=== PATIENT | female | born 1930 | race Caucasian/White ===

== ENCOUNTER → 2019-05-31 | Outpatient (CLI) | payer OTHER, BC ==
--- NOTE | 2019-05-31 14:11 | 2DMMODE ---
[facility] [employer] [address] 2 D/M-MODE ECHOCARDIOGRAM Name: SHAYLA PEDRAZA Room #: REG CL Hector#: [id number] ������������� Admission: 05/31/19 ������������� Attend Phys: Arcenio Colón Discharge: ��� ������������� ��� Date of : [birth year] Date of Service: 05/31/19 1411 �� Report #: [id number] �������� ��������������������������������������������[id number] THIS REPORT FOR: //name// APPROVED REPORT Study performed: 05/31/2019 13:11:50 EXAM: Comprehensive 2D, Doppler, and color-flow Echocardiogram Patient Location: Out-Patient Room #: Echo lab 2 Status: routine BSA: 1.61 HR: 72 bpm BP: 126/76 mmHg Rhythm: Pacemaker Other Information Study Quality: Adequate Indications Pacemaker Left Ventricle The left ventricle is normal size. Regional wall motion is not well visualized but grossly normal. There is normal left ventricular wall thickness. The left ventricular systolic function is normal. The left ventricular ejection fraction is within the normal range. LVEF is 55-60%. Mild diastolic dysfunction is present (impaired relaxation pattern). Right Ventricle The right ventricle is normal size. The right ventricular systolic function is normal. Pacemaker lead is present in the right ventricle. Atria The left atrium size is normal. The right atrium size is normal. Pacemaker lead is present in the right atrium. Aortic Valve The aortic valve is mildly calcified No aortic regurgitation is present. There is no aortic valvular stenosis. Mitral Valve The mitral valve is normal in structure. Trace mitral regurgitation. No evidence of mitral valve stenosis. [facility] [address] [place] [address] 2 D/M-MODE ECHOCARDIOGRAM Name: SHAYLA PEDRAZA Room #: REG Sherlyn.#: [id number] ������������� Admission: 05/31/19 ������������� [facility]end [facility] Discharge: ��� ������������� ��� Date of : [birth year] Date of Service: 05/31/191410 �� Report #: [id number] �������� ��������������������������������������������[id number] Tricuspid Valve The tricuspid valve is normal in structure. Trace tricuspid regurgitation. Unable to assess PA pressure. Pulmonic Valve The pulmonary valve is normal in structure. There is no pulmonic valvular regurgitation. Great Vessels The aortic root is normal in size. IVC is normal in size and collapses >50% with inspiration. Pericardium There is no pericardial effusion. <Conclusion> The left ventricular systolic function is normal. Regional wall motion is not well visualized but grossly normal. LVEF is 55-60%. Mild diastolic dysfunction The aortic valve is mildly calcified. No aortic regurgitation or stenosis The mitral valve is normal in structure. Trace mitral regurgitation. Unable to assess pulmonary artery pressure. There is no pericardial effusion. ��������������������������������������������� <ELECTRONICALLY SIGNED> ���������������������������������������� By: Shimon Núñez MD, [facility] ��������������������������������������������� 05/31/19 141 10 1411 Shimon Núñez MD, FACC /INF
== END ==
LOC: CV 12:46
DX: I35.8 Other nonrheumatic aortic valve disorders (principal); Z95.0 Presence of cardiac pacemaker